=== PATIENT | male | born 1950 | race Caucasian/White ===

== ENCOUNTER 2016-04-30 12:28 | Emergency (ER) | payer OTHER ==
[~2016-04-30] VITALS: Ht 180.3 cm; Wt 127.0 kg
[2016-04-30 15:44] VITALS: BP 113/100
== END 2016-04-30 15:53 | disposition home or self-care (01) ==
LOC: EME 12:28
PROC: 2W3QX1Z Immobilization of Right Lower Leg using Splint (ICD-10-PCS; principal; 2016-04-30)
PROC: 3E0234Z Introduction of Serum, Toxoid and Vaccine into Muscle, Percutaneous Approach (ICD-10-PCS; principal; 2016-04-30)
DX: S82.891A Other fracture of right lower leg, initial encounter for closed fracture (principal); S80.211A Abrasion, right knee, initial encounter; W00.0XXA Fall on same level due to ice and snow, initial encounter; Y93.K1 Activity, walking an animal; Z23 Encounter for immunization
CPT/HCPCS: 73564; 73590; 73610; 99281; 99284